=== PATIENT | female | born 1950 | race Caucasian/White ===

== ENCOUNTER 2016-10-12 11:22 | Day surgery (SDC) | payer OTHER ==
[~2016-10-12] VITALS: Ht 165.1 cm; Wt 121.1 kg
[2016-10-12] MEDS ORDERED: NS 1000P @30 MLS/HR (KVO) IV SCH (12:00)
[2016-10-12] MEDS ORDERED: FLUT1SPR5 EACH NARE (12:01)
[2016-10-12] MEDS ORDERED: METF500T4 PO (12:01)
[2016-10-12] MEDS ORDERED: FURO40TA PO (12:01)
[2016-10-12] MEDS ORDERED: UMEC1AER INH (12:01)
[2016-10-12] MEDS ORDERED: ASPI1TAB69 PO (12:01)
[2016-10-12] MEDS ORDERED: POTA10CA PO (12:01)
[2016-10-12] MEDS ORDERED: THER4000 PO (12:02)
[2016-10-12] MEDS ORDERED: VENTAER INH (12:02)
[2016-10-12] MEDS ORDERED: SYNT112T PO (12:02)
[2016-10-12 12:03] VITALS: BP 192/79; PULSE 79; RESP 16; TEMP 98.2; O2SAT 96
[2016-10-12] MEDS ORDERED: HEPARIN-NS/PF INJ 500 ML ONE (13:43)
[2016-10-12] MEDS ORDERED: MIDAZOLAM HCL 2 MG/2 ML VIAL ONE (13:59)
[2016-10-12] MEDS ORDERED: LORazepam 2 MG/ML VIAL IV PRN (14:45)
[2016-10-12] MEDS ORDERED: METOCLOPRAMIDE HCL 10 MG/2 ML VIAL IV PRN (14:45)
[2016-10-12] MEDS ORDERED: oxyCODONE/ACETAMINOPHEN 5 MG/325 MG TAB PO PRN ×2 (14:45)
[2016-10-12] MEDS ORDERED: LIDOCAINE HCL 1% 50 ML VIAL INFIL PRN (14:45)
[2016-10-12] MEDS ORDERED: SODIUM CHLOR 0.9% 250 ML INJ 250 ML IV PRN (14:45)
[2016-10-12] MEDS ORDERED: ATROPINE SULFATE 1 MG/ML VIAL IV PRN (14:45)
[2016-10-12] MEDS ORDERED: BACITRACIN OINT 0.9 GM PKT TOP ONE (14:45)
[2016-10-12] MEDS ORDERED: ONDANSETRON HCL 4 MG/2 ML VIAL IV PRN (14:45)
[2016-10-12] MEDS ORDERED: MISC INFORMATION XX ONE (14:45)
[2016-10-12] MEDS ORDERED: IOHEXOL 350 MG/ML 100 ML BTL (for Cath Lab) OTHER ONE (14:45)
--- NOTE | 2016-10-12 18:25 | MA ---
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 Fluoroscopy with interpretation. 2. Right heart catheterization. 3. Left heart catheterization. 4. Left ventriculography. 5. Coronary angiography. METHOD Risks, benefits and alternatives discussed with the patient. The patient understood and he consented to the procedure. DETAILS The patient brought in to catheterization lab and placed on the catheterization table. Right groin was prepped and draped in sterile fashion. Right groin was anesthetized with 2% lidocaine. Right common femoral artery was cannulated 4-[facility] 11 cm sheath was placed in the right common femoral artery without difficulty. Right femoral vein was then accessed and a 7-[facility] 11 cm sheath was placed out difficulty. LEFT HEART CATHETERIZATION A 4-[facility] angled pigtail catheter was advanced across the aortic valve without difficulty. Intraventricular hemodynamics measured 136/11 11 mmHg with an end-diastolic pressure of 12 mmHg. There was a 20 mmHg trans aortic valvular pullback gradient from [id number], consistent with mild aortic stenosis. LEFT VENTRICULOGRAPHY Left ventriculography was performed in a right anterior oblique view using a 4-[facility] angled pigtail catheter, 30 mL contrast injection with good opacification. Left ventricular ejection fraction visually estimated at 65% without regional wall motion abnormalities. RIGHT HEART CATHETERIZATION A 7-[facility] [place] Pulmonary catheter was advanced into the right femoral venous sheath to the level of the right atrium under fluoroscopic guidance. Hemodynamics were performed in all chambers while advancing to the pulmonary capillary wedge position. HEMODYNAMIC RESULTS As follows: 1. Right atrial pressure measured at 6 mmHg. 2. Right ventricular pressure measured at 36/2 mmHg. 3. Pulmonary arterial pressure measured 35/13 mmHg with a mean pressure of 24 mmHg. 4. Pulmonary capillary wedge pressure measured at 12 mmHg. 5. Cardiac output was measured 7.8 liters per minute. 6. Cardiac index measured 3.5 liters per minute per meter squared. 7. Simultaneous left ventricular end-diastolic pressure and pulmonary capillary wedge pressure waveform tracings were analyzed, there was no evidence for mitral stenosis. CORONARY ANGIOGRAPHY Left coronary circulation was selectively engaged with a 4-[facility] JL-4 catheter. Right coronary circulation was selectively engaged with a 4-[facility] JR-4 catheter. CORONARY ANATOMY 1. Left main coronary is angiographically normal. 2. Left anterior descending coronary artery is a large caliber size vessel. The vessel is quite tortuous and extends down to the apex. There are several smaller diagonal branches, all of which were angiographically normal. Left anterior descending coronary also angiographically normal. 3. Left circumflex gives rise to first obtuse marginal branch. The first obtuse marginal branch although tortuous is angiographically normal. 4. The right coronary is a dominant vessel giving rise to a posterior descending branch. The right coronary and posterior descending branches are both angiographically normal. CONCLUSION 1. Angiographically normal coronary arteries. 2. Normal left and right-sided filling pressures. 3. Normal pulmonary pressures. 4. Normal cardiac output and index. 5. Mild aortic stenosis. PLAN Despite the patient's exertional dyspnea there is no evidence for underlying cardiac etiology. Pulmonary pressures are normal. Her cardiac output is normal. She has no obstructive coronary disease. She can follow up from a pulmonary perspective for any further workup. MD TASHA Ryder/KEIRA /2:49 PM /6:05 PM MTDD
== END 2016-10-12 19:59 | disposition home or self-care (01) ==
LOC: HDOC 11:22 → HDIC 11:23 → HDOC 19:59
PROVIDERS: ATTEND Internal Medicine
DX: I35.0 Nonrheumatic aortic (valve) stenosis (principal); I10 Essential (primary) hypertension; G47.30 Sleep apnea, unspecified; E03.9 Hypothyroidism, unspecified
CPT/HCPCS: 82810; 86850; 86900; 86901; 93460; C1769; C1893; J1644; J2250; J3010; Q9967